=== PATIENT | male | born 1990 | race Caucasian/White ===

== ENCOUNTER 2022-06-30 15:41 | Emergency (ER) | payer SELFPAY ==
--- NOTE | ~2022-06-30 | XR_ITS ---
EXAM: XR wrist LT min 3V, XR wrist RT min 3V DATE: 06/30/2022 16:21 HISTORY: INJURY AT WORK, POSTERIOR BRUISING . COMPARISON: None available. FINDINGS: Normal mineralization. Old distal left ulnar fracture. No acute fracture or dislocation. N o lytic or blastic lesion. Joint spaces are maintained. No erosion or periosteal change. Soft tissues within normal limits. IMPRESSION: No acute osseous finding in the left or right wrist. Reviewed, dictated and finalized at location K. IMPRESSION: No acute osseous finding in the left or right wrist.
[2022-06-30 15:55] VITALS: BP 122/74; PULSE 84; RESP 12; TEMP 37.3; O2SAT 100
[2022-06-30 15:59] VITALS: BP 122/74; PULSE 84; RESP 12; TEMP 37.3; O2SAT 100
--- NOTE | 2022-06-30 16:11 | ED.UPPEXIN ---
HPI - Extremity Injury (Upper) General Chief Complaint: Extremity Injury, Upper Stated Complaint: Both Wrist Pain Time Seen by Provider: 06/30/22 16:08 Source: patient Mode of arrival: ambulatory Limitations: no limitations History of Present Illness HPI narrative: Anibal is a 31-year-old male patient presenting to the clinic today with complaints of bilateral wrist pain for the past 3-4 days. 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 Has bruising over the distal forearm. States he thought his symptoms would improve however now he is having some weakness in his supervisor counseling and guidance bilaterally and states he lifted a wooden Pallet and had pain in his wrist. Related Data Home Medications Medication Instructions Recorded Confirmed albuterol sulfate 90 mcg/actuation inhalation 06/30/22 aerosol inhaler montelukast 10 mg tablet mg 06/30/22 Allergies Allergy/AdvReac Type Severity Reaction Status Date / Time No Known Allergies Allergy Verified 06/30/22 15:56 Review of Systems Review of Systems: Pertinent positives per HPI. Patient denies any fever, chills, rash, headache, visual changes, dizziness, cough, runny nose, sore throat, shortness of breath, chest pain, palpitations, nausea, vomiting, diarrhea, constipation, abdominal pain, or any urinary issues. PMFSH Comments At the time of my signature, I reviewed and agree with the nursing past medical, surgical, social, and family history. There is no relevant family history pertinent to the patient complaint. Exam Narrative: General: Well-developed, well nourished, in no apparent distress Head: Normocephalic, atraumatic. Cardio: Regular rate and rhythm, s1 and s2 normal, no murmur appreciated. Resp: Clear to auscultation bilaterally, no rhonchi, rales, wheezing or rubs. 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 Level of Care: Express Care Visit Vital Signs Vital signs: Vital Signs Temperature 37.3 C 06/30/22 15:55 Pulse Rate 84 06/30/22 15:55 Respiratory Rate 12 06/30/22 15:55 Blood Pressure 122/74 06/30/22 15:55 Pulse Oximetry 100 06/30/22 15:55 Oxygen Delivery Room Air 06/30/22 15:55 Temperature 37.3 C 06/30/22 15:59 Pulse Rate 84 06/30/22 15:59 Respiratory Rate 12 06/30/22 15:59 Blood Pressure 122/74 06/30/22 15:59 Pulse Oximetry 100 06/30/22 15:59 Oxygen Delivery Room Air 06/30/22 15:59 Vital signs reviewed MDM - Extremity Injury (Upper) MDM Narrative Medical decision making narrative: At the time of visit patient is resting on the exam table. X-rays of bilateral wrist were performed and was negative for any sign of fracture or malalignment of the wrist or forearm. I suspect patient has a forearm contusion with bilateral wrist pain. Supportive measures were discussed with the patient he voiced understanding discharge instructions and agrees to treatment plan. Differential Diagnosis Differential diagnosis: Likely sprain and strain of wrist, fracture of wrist and other (Contusion) Imaging Data Radiologist's impression: Close Wrist X-Ray (Signed) James Bass - 06/30/22 Wrist X-Ray (Signed) James Bass - 06/30/22 [facility] [address] [address] XRay Report Signed Patient: Keyon Gerardo
== END 2022-06-30 17:12 | disposition home or self-care (01) ==
PROVIDERS: Emergency Provider Nurse Practitioner Family
DX: S50.12XA Contusion of left forearm, initial encounter (principal); S50.11XA Contusion of right forearm, initial encounter; W20.8XXA Other cause of strike by thrown, projected or falling object, initial encounter; M25.532 Pain in left wrist; M25.531 Pain in right wrist; J45.909 Unspecified asthma, uncomplicated
CPT/HCPCS: 73110; 99204; G0463